=== PATIENT | female | born 1945 | race Caucasian/White ===

== ENCOUNTER 2017-02-07 17:40 | Emergency (ER) | payer MEDICARE, OTHER ==
[2017-02-07] MEDS ORDERED: ACETAMINOPHEN TAB 325 MG TAB PO STA (18:07)
[2017-02-07 18:34] LABS: Basophils # (A) 0.1 k/uL (0-0.2); Basophils % (A) 1 %; CH 31.2; CHCM 33.3; Eosinophils # (A) 0.3 k/uL (0-0.7); Eosinophils % (A) 3 %; HCT 45.3 % (34.0-46.0); HDW 2.26; HGB 14.8 gm/dL (11.4-16.0); Luc # (Auto) 0.08; Luc % (Auto) 1; Lymphocytes # (A) 2.1 k/uL (1.0-4.8); Lymphocytes % (A) 24 %; MCH 30.7 pg (25.0-35.0); MCHC 32.6 g/dL (31.0-37.0); MCV 94.1 fL (80.0-100.0); Mean Platelet Volume 7.5; Monocytes # (A) 0.5 k/uL (0-1.0); Monocytes % (A) 6 %; Neutrophils # (A) 5.7 k/uL (1.3-7.7); Neutrophils % (A) 65 %; RBC 4.81 m/uL (3.80-5.40); RDW 13.7 % (11.5-15.5); WBC 8.8 k/uL (3.8-10.6); WBC (Perox) 8.76
--- NOTE | 2017-02-07 18:34 | ED ---
Headache HPI - General Chief Complaint: Headache Stated Complaint: HEADACHE, COUMADIN Time Seen by Provider: 02/07/17 18:00 Mode of arrival: wheelchair Limitations: no limitations - History of Present Illness Initial Comments: 71-year-old female patient presents to emergency department today for complaints of headache. Patient states that she laid down this afternoon and took a nap, when she woke she had a severe headache at the front of her head. She states she is also having some neck pain. The patient states that she has not had a headache in a long time. States this is different than she ever experienced before. Patient does take Coumadin for a history of blood clots. Patient states that she did eat some celery today and was concerned because she takes Coumadin. Patient states that when she woke up from her nap she also felt some dizziness. She states that she felt lightheaded and lost her balance. She denies any blurred vision, double vision, back pain, chest pain, shortness of breath, abdominal pain, nausea, or vomiting. She denies any leg pain or swelling. Patient is visiting here from [place], she says she has been in for 2 weeks. - Related Data Home Medications Medication Instructions Recorded Confirmed Fenofibrate [Tricor] 160 mg PO DAILY 10/04/15 02/07/17 Hydrochlorothiazide [Hydrodiuril] 25 mg PO DAILY 10/04/15 02/07/17 Lisinopril [Prinivil] 5 mg PO DAILY 10/04/15 02/07/17 Simvastatin [Zocor] 20 mg PO HS 10/04/15 02/07/17 Venlafaxine HCl [Effexor] 75 mg PO BID 10/04/15 02/07/17 Warfarin [Coumadin] 5 mg PO DAILY 10/04/15 02/07/17 Previous Rx's Medication Instructions Recorded Acetaminophen-Codeine 300-30mg 1 tab PO Q4H PRN #20 tablet 10/04/15 [Tylenol #3] Allergies Allergy/AdvReac Type Severity Reaction Status Date / Time muscle relaxer Allergy Unknown Uncoded 02/07/17 17:50 Review of Systems ROS Statement: Those systems with pertinent positive or pertinent negative responses have been documented in the HPI. ROS Other: All systems not noted in ROS Statement are negative. Past Medical History Past Medical History: Hyperlipidemia, Hypertension Additional Past Medical History / Comment(s): blood clots History of Any Multi-Drug Resistant Organisms: None Reported Past Surgical History: Adenoidectomy, Appendectomy, Cholecystectomy, Hysterectomy, Joint Replacement, Tonsillectomy Past Psychological History: No Psychological Hx Reported Smoking Status: Current every day smoker Past Alcohol Use History: None Reported Past Drug Use History: None Reported General Exam Limitations: no limitations General appearance: alert, in no apparent distress Head exam: Present: atraumatic, normocephalic, normal inspection Eye exam: Present: normal appearance, PERRL, EOMI. Absent: scleral icterus, conjunctival injection, periorbital swelling Pupils: Present: normal accommodation ENT exam: Present: normal exam, normal oropharynx, mucous membranes moist, TM's normal bilaterally Neck exam: Present: normal inspection, full ROM. Absent: tenderness, meningismus, lymphadenopathy Respiratory exam: Present: normal lung sounds bilaterally. Absent: respiratory distress, wheezes, rales, rhonchi, stridor Cardiovascular Exam: Present: regular rate, normal rhythm, normal heart sounds. Absent: systolic murmur, diastolic murmur, rubs, gallop, clicks GI/Abdominal exam: Present: soft, normal bowel sounds. Absent: distended, tenderness, guarding, rebound, rigid Extremities exam: Present: normal inspection, full ROM, normal capillary refill. Absent: tenderness, pedal edema, joint swelling, calf tenderness Back exam: Present: normal inspection Neurological exam: Present: alert, oriented X3, CN II-XII intact Psychiatric exam: Present: normal affect, normal mood Skin exam: Present: warm, dry, intact, normal color. Absent: rash Course Vital Signs 02/07/17 02/07/17 17:51 19:46 Temperature 97.4 F L 98.0 F Pulse Rate 73 74 Respiratory 20 18 Rate Blood Pressure 167/81 164/87 O2 Sat by Pulse 98 98 Oximetry Medical Decision Making - Medical Decision Making 71-year-old female patient presents for emergency department today for evaluation of headache. CT of the brain was performed and showed no acute intracranial abnormalities. Blood work was unremarkable. Patient did receive 1000 mg of Tylenol while here she states that her headache is improved pain currently rated a 1 out of 10 on a scale. Patient feels comfortable being discharged home at this time. Patient instructed to follow-up with primary care physician for recheck in 1-2 days. Patient instructed to return for any new, worsening, or concerning symptoms. Patient verbalizes understanding and agrees this plan. - Lab Data Result diagrams: 02/07/17 18:15 02/07/17 18:15 Lab Results 02/07/17 02/07/17 02/07/17 Range/Units 18:15 18:15 18:15 WBC 8.8 (3.8-10.6) k/uL RBC 4.81 (3.80-5.40) m/uL Hgb 14.8 (11.4-16.0) gm/dL Hct 45.3 (34.0-46.0) % MCV 94.1 (80.0-100.0) fL MCH 30.7 (25.0-35.0) pg MCHC 32.6 (31.0-37.0) g/dL RDW 13.7 (11.5-15.5) % Plt Count 300 (150-450) k/uL Neutrophils % 65 % Lymphocytes % 24 % Monocytes % 6 % Eosinophils % 3 % Basophils % 1 % Neutrophils # 5.7 (1.3-7.7) k/uL Lymphocytes # 2.1 (1.0-4.8) k/uL Monocytes # 0.5 (0-1.0) k/uL Eosinophils # 0.3 (0-0.7) k/uL Basophils # 0.1 (0-0.2) k/uL PT 17.4 H (9.0-12.0) sec INR 1.8 H (<1.2) Sodium 142 (137-145) mmol/L Potassium 4.8 (3.5-5.1) mmol/L Chloride 107 (98-107) mmol/L Carbon Dioxide 26 (22-30) mmol/L Anion Gap 9 mmol/L BUN 13 (7-17) mg/dL Creatinine 0.70 (0.52-1.04) mg/dL Est GFR (MDRD) Af Amer >60 (>60 ml/min/1.73 sqM) Est GFR (MDRD) Non-Af >60 (>60 ml/min/1.73 sqM) Glucose 96 (74-99) mg/dL Calcium 9.7 (8.4-10.2) mg/dL Total Bilirubin 0.7 (0.2-1.3) mg/dL AST 42 H (14-36) U/L ALT 34 (9-52) U/L Alkaline Phosphatase 44 (38-126) U/L Total Protein 7.1 (6.3-8.2) g/dL Albumin 4.2 (3.5-5.0) g/dL - Radiology Data Radiology results: report reviewed, image reviewed CT scan of the brain without contrast reveals no intracranial hemorrhage or midline shift. Diffuse ventricular and sulcal prominence consistent with diffuse age-related cerebral atrophy. There is low attenuation in the periventricular white matter consistent with chronic small vessel ischemic change. The globes are intact and the visualized sinuses are clear. No acute intracranial hemorrhage or midline shift. There is mild diffuse age-related cerebral atrophy and chronic small vessel ischemic change noted. Impression dictated by Dr. Cisneros. Disposition Clinical Impression: Acute headache Disposition: HOME SELF-CARE Condition: Good Instructions: Acute Headache (ED) Additional Instructions: Increase fluid intake. If headaches persist follow up with primary care physician for reevaluation. Return for any new, worsening, or concerning symptoms. Referrals: Trenton Avendaño MD [Primary Care Provider] - 1-2 days Time of Disposition: 19:22
[2017-02-07 18:45] LABS: ALT 34 U/L (9-52); AST 42 U/L (14-36); Alkaline Phosphatase 44 U/L (38-126); Anion Gap 9 mmol/L; Blood Urea Nitrogen 13 mg/dL (7-17); Calcium 9.7 mg/dL (8.4-10.2); Carbon Dioxide 26 mmol/L (22-30); Chloride 107 mmol/L (98-107); Glucose 96 mg/dL (74-99); Non-African American GFR(MDRD) >60 (>60 ml/min/1.73 sqM); Potassium 4.8 mmol/L (3.5-5.1); Sodium 142 mmol/L (137-145); Total Bilirubin 0.7 mg/dL (0.2-1.3); Total Protein 7.1 g/dL (6.3-8.2)
--- NOTE | 2017-02-07 19:10 | CT ---
EXAMINATION TYPE: CT brain wo con DATE OF EXAM: 02/07/2017 HISTORY: [facility] CT DLP: 1055.7 mGycm. Automated Exposure Control for Dose Reduction was Utilized. TECHNIQUE: CT scan of the head is performed without contrast. COMPARISON: None. FINDINGS: There is no acute intracranial hemorrhage or midline shift identified. There is diffuse v entricular and sulcal prominence consistent with diffuse age-related cerebral atrophy. There is low- attenuation in the periventricular white matter consistent with chronic small vessel ischemic change. The globes are intact and the visualized sinuses are clear. IMPRESSION: No acute intracranial hemorrhage or midline shift. There is mild diffuse age-related ce rebral atrophy and chronic small vessel ischemic change noted.
[2017-02-07 19:12] LABS: INR 1.8 (<1.2); Prothrombin Time 17.4 sec (9.0-12.0)
[2017-02-07] MEDS ORDERED: IBUPROFEN 600 MG TAB PO STA ×2 (19:24→19:30)
[2017-02-07 19:49] VITALS: BP 164/87; PULSE 74; RESP 18; TEMP 98
== END 2017-02-07 19:46 | disposition home or self-care (01) ==
LOC: EC 17:40
DX: R51 Headache (principal); M54.2 Cervicalgia; R42 Dizziness and giddiness; F17.200 Nicotine dependence, unspecified, uncomplicated; E78.5 Hyperlipidemia, unspecified; I10 Essential (primary) hypertension; Z79.01 Long term (current) use of anticoagulants; Z79.899 Other long term (current) drug therapy
CPT/HCPCS: 36415; 70450; 80053; 85025; 85610; 99284

== ENCOUNTER → 2017-02-16 | Outpatient (CLI) | payer MEDICARE, OTHER ==
[2017-02-16 09:51] LABS: Basophils # (A) 0.1 k/uL (0-0.2); Basophils % (A) 1 %; CH 31.4; CHCM 32.9; Eosinophils # (A) 0.3 k/uL (0-0.7); Eosinophils % (A) 3 %; HCT 47.1 % (34.0-46.0); HDW 2.18; HGB 14.8 gm/dL (11.4-16.0); Luc # (Auto) 0.14; Luc % (Auto) 2; Lymphocytes % (A) 27 %; MCH 30.2 pg (25.0-35.0); MCHC 31.5 g/dL (31.0-37.0); MCV 95.9 fL (80.0-100.0); Mean Platelet Volume 7.5; Monocytes # (A) 0.4 k/uL (0-1.0); Monocytes % (A) 5 %; Neutrophils # (A) 4.5 k/uL (1.3-7.7); Neutrophils % (A) 62 %; RBC 4.91 m/uL (3.80-5.40); RDW 13.7 % (11.5-15.5); WBC 7.3 k/uL (3.8-10.6); WBC (Perox) 6.79
[2017-02-16 09:55] LABS: ALT 33 U/L (9-52); AST 30 U/L (14-36); Alkaline Phosphatase 43 U/L (38-126); Anion Gap 8 mmol/L; Blood Urea Nitrogen 13 mg/dL (7-17); Calcium 9.5 mg/dL (8.4-10.2); Carbon Dioxide 26 mmol/L (22-30); Chloride 107 mmol/L (98-107); Cholesterol 169 mg/dL (<200); Creatine Kinase 159 U/L (30-135); Glucose 94 mg/dL (74-99); HDL Cholesterol 59 mg/dL (40-60); Non-African American GFR(MDRD) >60 (>60 ml/min/1.73 sqM); Potassium 4.5 mmol/L (3.5-5.1); Sodium 141 mmol/L (137-145); Total Bilirubin 0.6 mg/dL (0.2-1.3); Total Protein 6.8 g/dL (6.3-8.2)
[2017-02-16 10:42] LABS: C Reactive Protein 5.9 mg/L (<10.0)
[2017-02-16 13:34] LABS: Erythrocyte Sedimentation Rate 8 mm/hr (0-20)
== END | disposition home or self-care (01) ==
LOC: LABWHC1 09:07
PROVIDERS: ATTEND Internal Medicine
DX: Z00.00 Encounter for general adult medical examination without abnormal findings (principal); E78.5 Hyperlipidemia, unspecified; I10 Essential (primary) hypertension; E55.9 Vitamin D deficiency, unspecified; J44.9 Chronic obstructive pulmonary disease, unspecified
CPT/HCPCS: 36415; 80053; 80061; 82306; 82550; 84439; 84443; 85025; 85652; 86140

== ENCOUNTER → 2018-01-28 | Outpatient (CLI) | payer MEDICARE, OTHER ==
[2018-01-28 08:52] LABS: INR 3.3 (<1.2); Prothrombin Time 29.3 sec (9.0-12.0)
== END | disposition home or self-care (01) ==
LOC: LABWHC1 08:14
PROVIDERS: ATTEND Family Medicine
DX: Z51.81 Encounter for therapeutic drug level monitoring (principal); Z79.01 Long term (current) use of anticoagulants
CPT/HCPCS: 36415; 85610

== ENCOUNTER → 2019-04-06 | Outpatient (CLI) | payer MEDICARE, OTHER ==
[2019-04-06 11:40] LABS: INR 2.3 (<1.2); Prothrombin Time 22.8 sec (9.0-12.0)
== END | disposition home or self-care (01) ==
LOC: LABWHC1 10:39
PROVIDERS: ATTEND Family Medicine
DX: I82.5Y9 Chronic embolism and thrombosis of unspecified deep veins of unspecified proximal lower extremity (principal); Z79.01 Long term (current) use of anticoagulants
CPT/HCPCS: 36415; 85610